=== PATIENT | male | born 1975 | race African-American/Black ===

== ENCOUNTER 2017-10-25 02:27 | Inpatient (IN) | payer OTHER ==
[~2017-10-25] VITALS: Ht 170.2 cm; Wt 70.8 kg
[~2017-10-25 02:27] MED LIST: ABILIFY30 M1 PO; FLEXERIL10 MG PO; LAMICTAL100 M2 PO; LAMOTRIGINE25 M3 PO; MOTRIN800 MG PO; NAPROXEN500 MG PO; NORCO 325 MG-51 TAB PO; PERCOCET 325 MG1 TA2 PO; SEROQUEL XR300 M1 PO; SEROQUEL100 M1 PO
--- NOTE | 2017-10-25 12:50 | Operative Report ---
Operative/Inv Procedure Report Surgery Date: 10/25/17 Name of Procedure: Left total hip arthroplasty Pre-Operative Diagnosis: Avascular necrosis left hip Post-Operative Diagnosis: Same Estimated Blood Loss: scant (200 CC) Surgeon/Supervisor Nut Processing: Mario HUTCHINSON,Bebeto MOORE Anesthesia: block (SPINAL) IV Fluids: See anesthesia record Implants: [place] Accolade's to femoral stem size 05, 127 degree neck angle, 36 head standard neck length 56 acetabular shell Drains: None Specimens: Left femoral head Complications: None Condition: Stable Operative Indication: Patient's a 41-year-old male with severe degenerative changes of the left hip most likely secondary to avascular necrosis. Patient is failed conservative treatment was indicated for left total hip arthroplasty. Risks and benefits of procedure discussed with the patient detail. Skilled set hands was necessary and provided by physician retail assistant Jonathan Gotti weighted with limb positioning retraction component assembly throughout the case. Operative/Procedure Note Note: Once informed consent was obtained and the correct limb was identified patient brought to room placed on table in supine position. After administration of spinal anesthesia patient placed in a right lateral decubitus position with an axillary roll in place and all bony prominences well-padded. A Sosa catheter was placed. The left lower chamois was prepped and draped in usual sterile fashion. To begin the procedure and incision was started at the tip of the greater trochanter and carried out posteriorly and superiorly. Sharp dissection was carried down through the skin and subcutaneous tissue. The gluteus dameon fascia was identified and incised sharply with a #10 blade. The gluteus dameon fibers were then bluntly dissected at their junction. The gluteus medius muscle belly was identified and retractors placed deep to this. This allowed isolation and identification the piriformis tendon. This was released from its insertion piriformis fossa. This was tagged for later repair. Retractor was then placed around the femoral neck and the retractor that was deep to the gluteus dameon and gluteus medius was then placed deep to gluteus minimus. This allowed exposure of the hip capsule. This was incised at the superior aspect of the capsule and tagged for later repair. The hip was dislocated. There were several loose bodies are removed from the hip joint. The femoral neck cut was made 1 fingerbreadth above the lesser trochanter. Femoral head was passed off as specimen. Anterior and inferior acetabular retractors were placed. A large removed from the acetabulum. The labrum was removed from the hip acetabulum and acetabular osteophytes were also removed with a curved osteotome. We then began reaming with a 47 reamer and sequentially reamed up to a size 55 reamer. A trial 56 shell was placed and found to be a good fit. Size 56 acetabular shell was opened and placed into the acetabulum with the correct version and abduction angle. Excellent press-fit was obtained. No need for screws. The liner was opened and locked into the acetabular shell. Attention was then turned to the femur. A box osteotome was used to remove lateral femoral neck and into the femoral canal. Then a starting reamer was used into enter the femoral canal and reamed distally. We then began broaching with a size 0 broach and broached up to a size 5 broach the 5 broach was excellent fit and left in place. A trial reduction was done with a standard neck length and a 36 mm head. The hip was relocated and found to be stable in 90 of flexion and 30 of internal rotation and 30 of abduction. Leg lengths are equal. Hip was redislocated and the trial components removed. The femoral canal was pulse lavaged. A size 527 neck angle Accolade 2 stem was opened and placed down the canal using press-fit technique. A 36 [place] head with a 0 neck length was placed onto the femoral component and the hip was reduced. Again it was taken through a range of motion found be stable with equal leg lengths. The hip was then pulse lavaged. The capsule and piriformis were repaired back to the greater trochanter through drill hole. The fascia was closed with a running looped #1 Maxon suture. The deep tissues were closed with #1 Vicryl interrupted sutures and the subcutaneous tissues closed with 2-0 Vicryl interrupted sutures. Skin was closed amari and sterile dressings applied. Patient was awakened taken recovery in stable condition.
--- NOTE | 2017-10-25 13:44 | RADIOLOGY REPORT ---
EXAMINATION: XR HIP, LEFT CLINICAL INFORMATION: Total hip replacement. COMPARISON: None pertinent TECHNIQUE: A single AP view was obtained postop. FINDINGS: The total hip replacement is in the normally expected position. There are no complications. Soft tissues are unremarkable. IMPRESSION: Normal postop hip replacement.
--- NOTE | 2017-10-25 13:59 | Admission Core Measures ---
Acute Coronary Syndrome (CM) ACS Core Measures Acute Coronary Syndrome Diagnosis No Congestive Heart Failure (NEW) CHF Core Measures Congestive Heart Failure Diagnosis No Cerebrovascular Accident (NEW) CVA Core Measures CVA/TIA Diagnosis No Venous Thromboembolism VTE Core Fauzia (View Protocol) VTE Risk Factors Surgery No Mechanical VTE Prophylaxis d/t N/A MechProphylax Ordered No VTE Pharm Prophylaxis d/t NA PharmProphylax ordered Problem List As ranked by this Provider includes Assessment & Plan 1. Avascular necrosis of bone of left hip HOME MEDS Home Med List Aripiprazole (Abilify) 30 MG TABLET 1 TAB PO DAILY MENTAL HEALTH (Reported) Lamotrigine 25 MG TABLET 2 TAB PO QAM MENTAL HEALTH (Reported) Lamotrigine (Lamictal) 100 MG TABLET 2 TAB PO QAM MENTAL HEALTH (Reported) Quetiapine Fumarate (Seroquel) 100 MG TABLET 1 TAB PO BID MENTAL HEALTH ( Reported) Quetiapine Fumarate (Seroquel XR) 300 MG TAB.ER.24H 2 TAB PO QPM MENTAL HEALTH (Reported)
--- NOTE | 2017-10-25 14:02 | Surgical Discharge Summary ---
Visit Information Visit Dates Admission Date: 10/25/17 Discharge Date: 10/26/17 History of Present Illness Chief Complaint: Left hip pain Medical History Blood Transfusion Hx: No Neurological: NONE EENT: NONE Cardiovascular: NONE Respiratory: NONE Gastrointestinal: NONE Hepatic: NONE Renal: NONE Musculoskeletal: sciatica Psychiatric: NONE Endocrine: NONE Blood Disorders: NONE Cancer(s): NONE ROAD MECHANIC/Reproductive: NONE Isolation History: Standard Surgical History Pertinent Surgical History: hip replacement (Left on 10/25/17) Psychosocial History Where Do You Live? Home Who Do You Live With? Patient and family What is Your Primary Language? Luxembourgish Review of Systems: Refer to H&P Hospital Course Course Attending Physician: Bebeto Martin MD Primary Care Physician: Maribel Franklin MD Hospital Course: Patient was admitted to the hospital for an elective left total hip replacement. The procedure was tolerated well and patient was transferred to a general surgical floor. Diet was advanced and tolerated and the patient voided spontaneously. The patient was evaluated and treated by physical therapy. At the time of hospital discharge, the vital signs were stable, neurovascular status was intact and pain was controlled with the use of oral pain medications. Allergies: Coded Allergies: No Known Allergies (10/24/17) Significant Procedures: Left total hip arthroplasty on 10/25/17 Disposition Summary Disposition Principal Diagnosis: Avascular necrosis left hip Additional Diagnosis: ABDIRAHMAN s/p left total hip arthroplasty Discharge Disposition: home health services Discharge Instructions General Discharge Information Code Status: Full Code Patient's Diet: Regular Patient's Activity: WBAT, RW as needed Follow-Up Instructions/Appts: F/u in [address] Martin Medications at Discharge Discharge Medications: Continue taking these medications: Aripiprazole (Abilify) 30 MG TABLET 1 Tablet ORAL DAILY Quetiapine Fumarate (Seroquel) 100 MG TABLET 1 Tablet ORAL TWICE DAILY Quetiapine Fumarate (Seroquel XR) 300 MG TAB.ER.24H 2 Tablet ORAL Every night Lamotrigine (Lamotrigine) 25 MG TABLET 2 Tablet ORAL Every Morning Lamotrigine (Lamictal) 100 MG TABLET 2 Tablet ORAL Every Morning Start taking the following new medications: Apixaban (Eliquis) 2.5 MG TABLET 2.5 Milligram ORAL TWICE DAILY Qty = 40 No Refills Oxycodone HCl/Acetaminophen (Percocet 5-325 MG Tablet) 5 MG-325 MG TABLET 1-2 Tablet ORAL EVERY 4 HOURS NEEDED as needed for PAIN SCALE Qty = 36 No Refills
--- NOTE | 2017-10-25 14:04 | Patient Discharge Instructions ---
Discharge Instructions General Discharge Information You were seen/treated for: Avascular necrosis left hip You had these procedures: Left total hip arthroplasty on 10/25/17 Watch for these problems: Increasing pain despite the use of pain medication Increasing redness, warmth or swelling Drainage of any type from incision Inability to bear weight on operative leg Persistent nausea and vomiting Fever greater than 101.5 degrees Other wound care: Please keep wound clean and dry. No ointments or lotions of any type on or near incision. Your dressing will be changed by your nurse on the second day after your surgery. Daily dry dressing changes are recommended each day thereafter. Do not soak your wound- no tub baths/swimming. You may shower 48hr after surgery. Diet Continue normal diet: Yes Activity Activity Self Limited: Yes Activity Limited to: Weight bear as tolerated Other activity limits: Use rolling walker as needed Acute Coronary Syndrome Inclusion Criteria At DC or during hospital stay patient has or had the following: ACS DIAGNOSIS No Discharge Core Measures Meds if any: Prescribed or Continued at Discharge Meds if any: NOT Prescribed or Continued at Discharge Congestive Heart Failure Inclusion Criteria At DC or during hospital stay patient has or had the following: CHF DIAGNOSIS No Discharge Core Measures Meds if any: Prescribed or Continued at Discharge Meds if any: NOT Prescribed or Continued at Discharge Cerebrovascular accident Inclusion Criteria At DC or during hospital stay patient has or had the following: CVA/TIA Diagnosis No Discharge Core Measures Meds if any: Prescribed or Continued at Discharge Meds if any: NOT Prescribed or Continued at Discharge Venous thromboembolism Inclusion Criteria VTE Diagnosis No VTE Type NONE VTE Confirmed by (Test) NONE Discharge Core Measures - Per Current guidelines, there needs to be overlap - treatment for the first 5 days of Warfarin therapy. - If discharged on Warfarin prior to 5 days of - overlap therapy, the patient will need to be - assessed for post discharge needs including - *Post discharge parental anticoagulation - *Warfarin and/or parental anticoagulation education - *Follow up date to check INR post discharge At least 5 days overlap therapy as Inpatient No Meds if any: Prescribed or Continued at Discharge Note: Overlap Therapy is Warfarin and Anticoagulant Meds if any: NOT Prescribed or Continued at Discharge
--- NOTE | 2017-10-25 15:07 | PN- Orthopedic ---
Subjective Subjective: POSTOP CHECK feeling well, ate lunch, no n/v/cp/sob. awaiting pt eval. still has le numbness. +uo via collins Objective Vital Signs and I&Os Vital Signs Date Time Temp Pulse Resp B/P B/P Pulse O2 O2 Flow FiO2 Mean Ox Delivery Rate 10/25 1347 Room Air Intake & Output 10/25 1600 10/25 0800 10/25 0000 10/24 1600 10/24 0800 10/24 0000 Intake Total Output Total Balance Patient 156 lb 163 lb Weight Weight Reported by Patient Measurement Method Physical Exam: gen- nad card- s1s2 rrr pulm- ctab abd- soft nt nd ext- l hip dressing cdi, ice pack in place, abduction pillow in place, alps on, calves soft nt, +pedal pulses, limited sensation in feet, limited ankle/foot movement Assessment/Plan Assessment/Plan A- POD0 sp L NAIMA due to AVN, with residual effects of spinal anesthesia, stable. P- oob, pt, wbat prn pain meds dc collins home meds hip precautions wears back brace at baseline, should continue eliquis bid dc planning will dw dr jay Core Measures Venous Thromboembolism VTE Risk Factors Surgery No Mechanical VTE Prophylaxis d/t N/A MechProphylax Ordered No VTE Pharm Prophylaxis d/t NA PharmProphylax ordered
[2017-10-25 16:00] VITALS: BP 118/52; BP 18/52
[2017-10-25 18:00] VITALS: BP 108/50
[2017-10-25 20:12] VITALS: BP 110/62
[2017-10-26] VITALS: BP 114/70
[2017-10-26 04:00] VITALS: BP 122/64
--- NOTE | 2017-10-26 07:52 | PN- Orthopedic ---
Subjective Subjective: 7 out of 10 pain at max overnight, control with Percocet. Overall he is feeling well, no other complaints. Pain is isolated to the left hip and groin region. No numbness no weakness no neurologic symptoms. No chest pain or shortness of breath. No fever or flulike illness Objective Vital Signs and I&Os Vital Signs Date Time Temp Pulse Resp B/P B/P Pulse O2 O2 Flow FiO2 Mean Ox Delivery Rate 10/26 0400 98.0 85 16 122/64 96 10/26 0000 98.1 83 16 114/70 95 10/25 2011 98.3 80 16 110/62 98 Room Air 10/25 1800 98.3 77 18 108/50 98 Room Air 10/25 1600 98.0 80 20 118/52 97 Room Air 10/25 1347 Room Air Intake & Output 10/26 0810/26 0000 10/25 1600 10/25 0800 10/25 0000 10/24 1600 Intake Total 740 1550 Output Total 325 Balance 740 1225 Intake, IV 500 710 Intake, Oral 240 840 Output, Urine 325 Patient 156 lb 163 lb Weight Weight Reported by Patient Measurement Method Physical Exam: Well-developed well-nourished no apparent distress. HEENT: Atraumatic, extraocular motion intact Neck: Supple, no lymphadenopathy Respiratory: No respiratory distress Extremities: No edema Left lower extremity hip dressing in place, Dressing clean dry and intact Mild thigh swelling No signs of infection. No shortening or rotation Hip range of motion is limited and without unexpected pain Neurovascularly intact distally Bilateral calves are supple, nontender. Neuro: Alert and oriented x3 Psych: Mood affect normal, normal memory normal judgment. Skin: Warm and dry, no rash on exposed skin Results Last 48 Hours of Labs: Laboratory Tests 10/26 0635 Chemistry Sodium Pending Potassium Pending Chloride Pending Carbon Dioxide Pending Anion Gap Pending BUN Pending Creatinine Pending BUN/Creatinine Ratio Pending Hematology CBC w Diff Pending WBC Pending RBC Pending Hgb Pending Hct Pending MCV Pending MCH Pending MCHC Pending RDW Pending Plt Count Pending MPV Pending Assessment/Plan Assessment/Plan Postop day #1 status post left total hip arthroplasty secondary to avascular necrosis of the left femoral head Perioperative antibiotics. Pain medication as needed. Out of bed Physical therapy, weightbearing as tolerated DC IV fluids Regular diet Follow a.m. labs Eliquis for DVT prophylaxis ALPS for DVT prophylaxis Regular home meds Dressing change postop day 2 Possible discharge later today if pain is controlled, clears physical therapy and labs are acceptable Core Measures Venous Thromboembolism VTE Risk Factors Surgery No Mechanical VTE Prophylaxis d/t N/A MechProphylax Ordered No VTE Pharm Prophylaxis d/t NA PharmProphylax ordered
[2017-10-26] MEDS ORDERED: ELIQUIS2.5 M1 PO (07:54)
[2017-10-26] MEDS ORDERED: PERCOCET 5-3251 EACH PO (07:54)
[2017-10-26 08:00] LABS: ABSOLUTE BASOPHIL COUNT 0 /CUMM (0.0-0.2); ABSOLUTE EOSINOPHIL COUNT 0 /CUMM (0.0-0.7); ABSOLUTE GRANULOCYTE CT 12.5 /CUMM (1.4-6.5); ABSOLUTE LYMPH COUNT 1.7 /CUMM (1.2-3.4); ABSOLUTE MONOCYTE COUNT 0.9 /CUMM (0.10-0.60); BASOPHIL % 0.1 % (0.0-2.0); EOSINOPHIL % 0 % (0-5); HEMATOCRIT 31.6 % (42-52); MEAN CORPUSCULAR HGB 33.8 PG (27.0-31.0); MEAN CORPUSCULAR VOLUME 99.4 FL (80.0-94.0); MEAN PLATELET VOLUME 8.2 FL (7.4-10.4); PLATELET COUNT 222 /CUMM (130-400); RBC DISTRIBUTION WIDTH 14.3 % (11.5-14.5); RED BLOOD CELL CT 3.18 /CUMM (4.70-6.10); WHITE BLOOD CELL COUNT 15.1 /CUMM (4.8-10.8)
[2017-10-26 08:05] VITALS: BP 118/52
[2017-10-26 08:07] LABS: GRANULOCYTE % 82.6 % (42.2-75.2)
[2017-10-26 13:37] VITALS: BP 108/54
== END 2017-10-26 15:00 | disposition home health service (06) | DRG 470 ==
LOC: SDA 02:27 → ENRESERV 12:38 → ENTRNSPT 13:17 → EDTRNSPT 13:20 → EDTRNSPTSTS 13:20 → CMPTRNSPT 13:37 → 2NB 13:38 → ENTRNSPT 10-26 14:55 → EDTRNSPTSTS 10-26 14:58 → EDTRNSPT 10-26 14:58 → 2NB 10-26 15:00 → CMPTRNSPT 10-26 15:10
PROVIDERS: Physician Assistant Surgical
PROC: 0SRB04A Replacement of Left Hip Joint with Ceramic on Polyethylene Synthetic Substitute, Uncemented, Open Approach (ICD-10-PCS; principal; 2017-10-25)
DX: M87.852 Other osteonecrosis, left femur (principal)
CPT/HCPCS: 2NSBP; 36592; 73501; 82436; 87086; 97110-GO; 97116-GO; 97161-GP; J1100; J2405; J3370; J7040; J7060

== ENCOUNTER 2018-04-04 02:56 | Inpatient (IN) | payer OTHER ==
[~2018-04-04] VITALS: Ht 167.6 cm; Wt 67.8 kg
[~2018-04-04 02:56] MED LIST changes: +ELIQUIS2.5 M1 PO; +PERCOCET 5-3251 EACH PO
--- NOTE | 2018-04-04 09:25 | Operative Report ---
Operative/Inv Procedure Report Surgery Date: 04/04/18 Name of Procedure: Right total hip arthroplasty Pre-Operative Diagnosis: Avascular necrosis right hip Post-Operative Diagnosis: Same Estimated Blood Loss: 200 CC Surgeon/Corporate Coordinator: Mario HUTCHINSON,Bebeto Gotti Anesthesia: general endotracheal tube IV Fluids: See anesthesia record Implants: [place] Accolade 2 femoral stem size 4 127 neck angle standard neck length 36 mm head and a 56 acetabular shell Drains: None Specimens: Right femoral head Complications: None Condition: Stable Operative Indication: Patient's 42-year-old male with severe right hip pain secondary to avascular necrosis of the right hip. He is failed conservative treatment was indicated for total hip arthroplasty. The risks and benefits the procedure discussed with the patient in detail in the office. Skilled setting and is necessary provided by physician financial services assistant Herman Gotti made with retraction positioning and limb positioning and component simply throughout the case. Operative/Procedure Note Note: Once informed consent was obtained and the correct limb was identified the patient was brought to the operating room placed on table supine position. Demonstration of general endotracheal anesthesia patient was placed in the left lateral decubitus position on a pegboard with all bony prominences well-padded and axillary roll in place. A Sosa catheter had been placed. The right lower extremity was prepped and draped in usual sterile fashion. To begin the procedure incision was made in the skin from the tip of the greater trochanter and carried out superiorly and proximally along with the line of the gluteus dameon. Sharp dissection carried down through skin and subcutaneous tissue. The gluteus dameon fascia was incised and the fibers were bluntly dissected in line at their by [place] junction. Retractors placed deep to the gluteus medius muscle belly and the piriformis tendon was identified and released from its insertion site and tagged for later repair. A second retractor was placed around the femoral neck and the retractor deep to the gluteus medius was then placed deep to gluteus minimus. A superior capsulotomy was performed and this was tagged for later repair. Once this was done the hip was dislocated without complication. Femoral neck cut was made 1 fingerbreadth above the lesser trochanter and the femoral head was passed off as specimen. Anterior and inferior acetabular retractors were placed in the pulmonary removed from the acetabulum. Any osteophytes from the acetabular maneuver the rondure and we began reaming with a size 47 reamer. We sequentially reamed up to a size 53 reamer. A trial 54 shell was placed and was found to be the excellent fit. A size 54 [place] shell was opened and press-fit into the acetabulum without complication. No need for screw fixation. The liner was then opened with a posterior lip and locked into place into the shell. Ray-Katie was placed to protect it and we then turned our attention to the femur. The femur was placed into internal rotation and a osteotome was used to open the femoral canal and remove lateral femoral neck. We have sequentially then broached the femoral canal starting with 0 broach and went up to a size 4 broach. The 4 broach was an excellent press-fit and left in place for trial reduction with a 36 mm head and a standard neck length. Hip was relocated easily. Leg lengths are equal. The hip was stable at 90 of flexion with 40 of internal rotation 20 of adduction. The hip was redislocated and the trial head was removed and the broach was removed. The femoral canal was pulse lavaged and a size 4 press-fit Accolade 2 femoral stem was opened and press-fit into the canal without complication. A 36 mm head 0 neck length was opened and placed onto the femoral component. The hip was relocated and taken through range of motion and again found to be stable. Leg lengths are equal. The wound was then pulse lavaged. The superior capsule and the piriformis were repaired back to the greater trochanter through drill holes. The fascia was closed with a running #1 looped Maxon suture. The subcutaneous tissues closed with #1 Vicryl and 2-0 Vicryl interrupted sutures and the skin was closed amari. Sterile dressings applied and the patient was awakened taken recovery in stable condition.
--- NOTE | 2018-04-04 09:47 | Admission Core Measures ---
Acute Coronary Syndrome (CM) ACS Core Measures Acute Coronary Syndrome Diagnosis No Congestive Heart Failure (NEW) CHF Core Measures Congestive Heart Failure Diagnosis No Cerebrovascular Accident CVA Core Measures CVA/TIA Diagnosis No Venous Thromboembolism VTE Core Fauzia (View Protocol) VTE Risk Factors Surgery No Mechanical VTE Prophylaxis d/t N/A MechProphylax Ordered No VTE Pharm Prophylaxis d/t NA PharmProphylax ordered Problem List As ranked by this Provider includes Assessment & Plan 1. Avascular necrosis of bone of right hip HOME MEDS Home Med List Aripiprazole (Abilify) 30 MG TABLET 1 TAB PO DAILY MENTAL HEALTH (Reported) Lamotrigine 25 MG TABLET 2 TAB PO QAM MENTAL HEALTH (Reported) Lamotrigine (Lamictal) 100 MG TABLET 2 TAB PO QAM MENTAL HEALTH (Reported) Quetiapine Fumarate (Seroquel) 100 MG TABLET 1 TAB PO BID MENTAL HEALTH ( Reported) Quetiapine Fumarate (Seroquel XR) 300 MG TAB.ER.24H 2 TAB PO QPM MENTAL HEALTH (Reported)
--- NOTE | 2018-04-04 09:49 | Patient Discharge Instructions ---
Discharge Instructions General Discharge Information You were seen/treated for: Right hip avascular necrosis You had these procedures: Right total hip replacement Watch for these problems: Increasing pain despite the use of pain medication Increasing redness, warmth or swelling Drainage of any type from incision Inability to bear weight on operative leg Persistent nausea and vomiting Fever greater than 101.5 degrees Do not soak the wound: Yes No bath, but you may shower: Yes Other wound care: Please keep wound clean and dry. No ointments or lotions of any type on or near incision at any time. No exceptions. Your dressing will be changed by your nurse on the second day after your surgery. Daily dry dressing changes are recommended each day thereafter. Do not soak your wound in a bath or pool at any time until otherwise indicated by your surgeon. You may shower on the third day following your surgery, please dry wound immediately after shower with a clean towel. Special Instructions: Constipation: Pain medication can cause constipation. Your surgeon has recommended that you take Colace and miralax each day. You may discontinue this medication if you develop loose stool or diarrhea. If you wish to continue this medication, it is available over the counter. If you are unable to move your bowels after several days, if you are unable to pass gas and are developing bloating, nausea, or vomiting as a result, please contact your doctor. Diet Continue normal diet: Yes Recommended Diet: Regular Acute Coronary Syndrome Inclusion Criteria At DC or during hospital stay patient has or had the following: ACS DIAGNOSIS No Discharge Core Measures Meds if any: Prescribed or Continued at Discharge Meds if any: NOT Prescribed or Continued at Discharge Congestive Heart Failure Inclusion Criteria At DC or during hospital stay patient has or had the following: CHF DIAGNOSIS No Discharge Core Measures Meds if any: Prescribed or Continued at Discharge Meds if any: NOT Prescribed or Continued at Discharge Cerebrovascular accident Inclusion Criteria At DC or during hospital stay patient has or had the following: CVA/TIA Diagnosis No Discharge Core Measures Meds if any: Prescribed or Continued at Discharge Meds if any: NOT Prescribed or Continued at Discharge Venous thromboembolism Inclusion Criteria VTE Diagnosis No VTE Type NONE VTE Confirmed by (Test) NONE Discharge Core Measures - Per Current guidelines, there needs to be overlap - treatment for the first 5 days of Warfarin therapy. - If discharged on Warfarin prior to 5 days of - overlap therapy, the patient will need to be - assessed for post discharge needs including - *Post discharge parental anticoagulation - *Warfarin and/or parental anticoagulation education - *Follow up date to check INR post discharge At least 5 days overlap therapy as Inpatient No Meds if any: Prescribed or Continued at Discharge Note: Overlap Therapy is Warfarin and Anticoagulant Meds if any: NOT Prescribed or Continued at Discharge
--- NOTE | 2018-04-04 09:51 | Surgical Discharge Summary ---
Visit Information Visit Dates Admission Date: 04/04/18 Discharge Date: 04/05/18 History of Present Illness Chief Complaint: Right hip avascular necrosis Medical History Neurological: seizure EENT: NONE Cardiovascular: NONE Respiratory: NONE Gastrointestinal: NONE Hepatic: NONE Renal: NONE Musculoskeletal: sciatica Psychiatric: schizophrenia Endocrine: NONE Blood Disorders: NONE Cancer(s): NONE KEY ACCOUNT EXECUTIVE/Reproductive: NONE History of MRSA: No History of VRE: No History of CDIFF: No Surgical History Pertinent Surgical History: N Psychosocial History Who Do You Live With? Patient and family What is Your Primary Language? Sammarinese Review of Systems: See H&P Hospital Course Course Attending Physician: Bebeto Martin MD Primary Care Physician: Maribel Franklin MD Hospital Course: Patient was admitted to the hospital for an elective total joint replacement. The procedure was tolerated well and patient was transferred to a general surgical floor. Diet was advanced and tolerated. The patient was evaluated and treated by physical therapy. At the time of hospital discharge, the vital signs were stable, neurovascular status was intact, and pain was controlled with the use of oral pain medications. Allergies: Coded Allergies: No Known Allergies (04/03/18) Disposition Summary Disposition Principal Diagnosis: Right hip avascular necrosis Additional Diagnosis: None Discharge Disposition: home health services Discharge Instructions General Discharge Information Code Status: Full Code Patient's Diet: Regular, advance as tolerated Patient's Activity: WBAT, posterior hip precautions Follow-Up Instructions/Appts: Follow up with Dr. Martin in 2 weeks from date of surgery, please call office to arrange/confirm this appointment Medications at Discharge Discharge Medications: Continue taking these medications: Aripiprazole (Abilify) 30 MG TABLET 1 Tablet ORAL DAILY Comments: Last Taken:04/05/18 Time: 900AM Quetiapine Fumarate (Seroquel) 100 MG TABLET 1 Tablet ORAL TWICE DAILY Comments: Last Taken: 04/05/18 Time: 900AM Quetiapine Fumarate (Seroquel XR) 300 MG TAB.ER.24H 2 Tablet ORAL Every night Comments: Last Taken: 04/04/18 Time: 815PM Lamotrigine (Lamotrigine) 25 MG TABLET 2 Tablet ORAL Every Morning Comments: Last Taken:04/05/18 Time: 900AM Lamotrigine (Lamictal) 100 MG TABLET 2 Tablet ORAL Every Morning Comments: Last Taken: 04/05/18 Time: 900AM Start taking the following new medications: Apixaban (Eliquis) 2.5 MG TABLET 2.5 Milligram ORAL TWICE DAILY Qty = 60 No Refills Comments: Last Taken: 04/05/18 Time: 900AM Oxycodone HCl/Acetaminophen (Percocet 5-325 MG Tablet) 5 MG-325 MG TABLET 1-2 Tablet ORAL EVERY 4 HOURS NEEDED as needed for PAIN Qty = 36 No Refills Comments: Last Taken: 04/05/18 Time: 930AM
--- NOTE | 2018-04-04 10:57 | RADIOLOGY REPORT ---
EXAMINATION: XR HIP, RIGHT CLINICAL INFORMATION: Status post total right hip arthroplasty COMPARISON: Contralateral left hip films dated 10/25/2017. TECHNIQUE: Single frontal view of the right hip. FINDINGS: The patient is status post total right hip arthroplasty with the acetabular and femoral components well seated within the elem bone. Alignment on single view appears anatomic. No hardware failure or elem bone fracture is seen. Mild subcutaneous and soft tissue emphysema is seen, consistent with recent postoperative state. Cutaneous staple line is seen over the lateral right hip. IMPRESSION: No evidence of hardware failure or elem bone fracture status post total right hip arthroplasty.
[2018-04-04 11:20] VITALS: BP 124/72
[2018-04-04 13:25] VITALS: BP 122/82
[2018-04-04 15:19] VITALS: BP 124/82
[2018-04-04 17:30] VITALS: BP 112/82
[2018-04-04 21:13] VITALS: BP 126/80
[2018-04-05 01:13] VITALS: BP 126/84
[2018-04-05 06:34] VITALS: BP 128/76
--- NOTE | 2018-04-05 07:32 | PN- Orthopedic ---
Subjective Subjective: Mild pain, well controlled, intermittent nausea overnight, improved. Voiding. No fever no flulike illness. Patient feels well. He would like to be discharged home today. Of note he had his left hip done a few months ago and was discharged home on postop day #1 as well and did well. Objective Vital Signs and I&Os Vital Signs Date Time Temp Pulse Resp B/P B/P Pulse O2 O2 Flow FiO2 Mean Ox Delivery Rate 04/05 0634 99.2 83 20 128/76 95 Room Air 04/05 0113 98.4 71 20 126/84 97 Room Air 04/04 2113 97.8 80 18 126/80 95 Room Air 04/04 1830 20 04/04 1730 97.7 58 26 112/82 97 04/04 1519 97.7 70 16 124/82 99 Room Air 04/04 1325 98.4 63 16 122/82 97 Room Air 04/04 1130 Room Air 04/04 1120 97.5 74 18 124/72 98 Room Air Intake & Output 04/05 0800 / 0000 08 1600 04/04 0800 04/04 0000 04/03 1600 Intake Total 1400 225 Output Total 700 297 Balance 700 -72 Intake, IV 600 225 Intake, Oral 800 Output, 2 Emesis Output, Urine 700 295 Patient 150 lb 158 lb 153 lb Weight Weight Bed scale Measurement Method Physical Exam: Well-developed well-nourished no apparent distress. HEENT: Atraumatic, extraocular motion intact Neck: Supple, no lymphadenopathy Respiratory: No respiratory distress Extremities: No edema RIGHT lower extremity hip dressing in place, Dressing clean dry and intact Mild thigh swelling No signs of infection. No shortening or rotation abduction pillow in place Hip range of motion is limited and without unexpected pain Neurovascularly intact distally Bilateral calves are supple, nontender. Neuro: Alert and oriented x3 Psych: Mood affect normal, normal memory normal judgment. Skin: Warm and dry, no rash on exposed skin Results Last 48 Hours of Labs: Laboratory Tests 04/05 657 Chemistry Sodium Pending Potassium Pending Chloride Pending Carbon Dioxide Pending Anion Gap Pending BUN Pending Creatinine Pending BUN/Creatinine Ratio Pending Hematology CBC w Diff Pending WBC Pending RBC Pending Hgb Pending Hct Pending MCV Pending MCH Pending MCHC Pending RDW Pending Plt Count Pending MPV Pending Assessment/Plan Assessment/Plan Postop day #1 status post right total hip arthroplasty Perioperative antibiotics. Pain medication as needed. Out of bed Physical therapy, weightbearing as tolerated DC IV fluids Regular diet Follow a.m. labs Eliquis for DVT prophylaxis ALPS for DVT prophylaxis Regular home meds Dressing change postop day 2 DC home today if labs acceptable, pain controlled and clears physical therapy Core Measures Venous Thromboembolism VTE Risk Factors Surgery No Mechanical VTE Prophylaxis d/t N/A MechProphylax Ordered No VTE Pharm Prophylaxis d/t NA PharmProphylax ordered
[2018-04-05] MEDS ORDERED: PERCOCET 5-3251 EACH PO (07:37)
[2018-04-05] MEDS ORDERED: ELIQUIS2.5 M1 PO (07:37)
[2018-04-05 08:04] LABS: ABSOLUTE BASOPHIL COUNT 0 /CUMM (0.0-0.2); ABSOLUTE EOSINOPHIL COUNT 0 /CUMM (0.0-0.7); ABSOLUTE GRANULOCYTE CT 10.4 /CUMM (1.4-6.5); ABSOLUTE LYMPH COUNT 1.5 /CUMM (1.2-3.4); ABSOLUTE MONOCYTE COUNT 1.2 /CUMM (0.10-0.60); BASOPHIL % 0 % (0.0-2.0); EOSINOPHIL % 0 % (0-5); GRANULOCYTE % 79.5 % (42.2-75.2); HEMATOCRIT 33.8 % (42-52); MEAN CORPUSCULAR HGB 33.8 PG (27.0-31.0); MEAN CORPUSCULAR HGB CONC 34.2 G/DL (33.0-37.0); MEAN CORPUSCULAR VOLUME 98.9 FL (80.0-94.0); MEAN PLATELET VOLUME 8.1 FL (7.4-10.4); PLATELET COUNT 245 /CUMM (130-400); RBC DISTRIBUTION WIDTH 14.3 % (11.5-14.5); RED BLOOD CELL CT 3.42 /CUMM (4.70-6.10); WHITE BLOOD CELL COUNT 13.1 /CUMM (4.8-10.8)
[2018-04-05 10:30] VITALS: BP 132/60
== END 2018-04-05 13:55 | DRG 470 ==
LOC: SDA 02:56 → ENRESERV 10:41 → ENTRNSPT 10:57 → EDTRNSPTSTS 11:07 → EDTRNSPT 11:07 → CMPTRNSPT 11:18 → 2NA 11:18 → ENPENDDIS 04-05 12:46 → ENTRNSPT 04-05 13:41 → EDTRNSPTSTS 04-05 13:51 → 2NA 04-05 13:55 → CMPTRNSPT 04-05 13:58
PROVIDERS: Physician Assistant Surgical
PROC: 0SR90JZ Replacement of Right Hip Joint with Synthetic Substitute, Open Approach (ICD-10-PCS; principal; 2018-04-04)
DX: M87.851 Other osteonecrosis, right femur (principal)
CPT/HCPCS: 2NAP; 36415; 36592; 73501; 82436; 87086; 97110-GO; 97116-GO; 97161-GP; 97530-GO; C1713; J0131; J1100; J2405; J2550; J3370; J3490; J7040